=== PATIENT | female | born 1940 | race Caucasian/White ===

== ENCOUNTER 2024-05-07 17:11 | Emergency (ER) | payer MEDICARE, OTHER, SELFPAY ==
--- NOTE | ~2024-05-07 | XR_ITS ---
EXAMINATION: XR humerus RT DATE: 05/07/2024 18:48 INDICATION: Right arm injury post fall TECHNIQUE: Internal and externally rotated views of the right humerus were obtained. COMPARISON: None. FINDINGS: Suture anchors at the right humeral head consistent with prior rotator cuff repair. Likely recurrent tear with cephalad subluxation of the humeral head with respect to the glenoid and narrowing of the s ubacromial space to essentially [id number] with remodeling of the undersurface of the acromion. The re is also been prior distal right clavicle resection. No fracture. 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 Dense material and suggestion of some soft tissue gas at the distal right upper ar m suggesting a skin laceration. No radiopaque foreign bodies. IMPRESSION: 1. No acute osseous abnormality. 2. Right rotator cuff arthropathy consistent with likely chronic recurrent rotator cuff tear post anila or repair. Reviewed, dictated and finalized at location A. IMPRESSION: 1. No acute osseous abnormality. 2. Right rotator cuff arthropathy consistent with likely chronic recurrent rota tor cuff tear post prior repair.
--- NOTE | 2024-05-07 17:26 | ED.GENADULT ---
HPI - General Adult General Chief complaint: Extremity Injury, Upper Stated complaint: Fell and has skin tears Time Seen by Provider: 05/07/24 17:26 Source: patient Mode of arrival: ambulatory Limitations: no limitations History of Present Illness HPI narrative: 83 y/o female presented for c/o large skin tears to right upper arm after fall at home today at 1300. States she tripped and fell backwards on her stairs, and struck the right arm on the stopper of the screen door. States she continued to do laundry, showered, and covered the site with paper towels. Denies pain to the wounds, denies decreased ROM to right arm, denies numbness, tingling or weakness of the extremity. Denies dizziness prior to the fall, denies LOC. Pt is accompanied by son. Unsure of last tetanus. Related Data Home Medications Medication Instructions Recorded Confirmed calcium carbonate 600 mg PO DAILY 05/07/24 05/07/24 cholecalciferol (vitamin D3) 50 50 mcg PO DAILY 05/07/24 05/07/24 mcg (2,000 unit) tablet (Vitamin D3) naproxen sodium 220 mg tablet 220 mg PO DAILY PRN ARTHRITIC PAIN 05/07/24 05/07/24 (Aleve) omega 1-erd-mem-fish oil 1,000 mg 1 cap PO DAILY 05/07/24 05/07/24 (120 mg-180 mg) capsule (Fish Oil) Allergies Allergy/AdvReac Type Severity Reaction Status Date / Time No Known Allergies Verified 05/07/24 17:54 Review of Systems Review of Systems: CONSTITUTIONAL: Denies body aches, fever, chills, or sweats. EYES: Denies visual changes, redness, or discharge. ENT: Denies rhinorrhea, congestion CARDIOVASCULAR: Denies chest pain, palpitations, or edema. RESPIRATORY: Denies cough or dyspnea. GASTROINTESTINAL: Denies abdominal pain, nausea, vomiting, or diarrhea. SKIN: MUSCULOSKELETAL: Denies back pain, joint pain, or myalgia. NEUROLOGIC: Denies headache, numbness, tingling, or weakness. PMFSH Comments At time of signature, I have reviewed and agree with nursing past medical, surgical, social and family history unless otherwise noted. Please see nursing chart for further information. There is no relevant family history pertinent to the presenting complaint Exam Narrative: GENERAL: Well-appearing HEAD: Normocephalic, atraumatic. EYES: conjunctivae clear, and EOMI. ENT: Mucous membranes moist. Oropharynx without edema, erythema or lesions. NECK: Supple. No lymphadenopathy CHEST: Clear to auscultation. HEART: Regular rhythm, bradycardic SKIN: Warm, dry. RUE distal to elbow skin avulsion 9cm. Mid/lateral upper arm with [id number] U-shaped deep laceration and avulsion involving muscle layer. Large amount of active bleeding. Full ROM to shoulder and elbow. CMS intact to hand. Radial pulse palpable. NEURO: Alert and oriented x3. Course Course Emergency Course: Patient is aware of diagnosis, understands and agrees to treatment plan. Anticipatory guidance given. Patient agrees to follow-up as directed and is aware of reasons to seek care at the emergency department. Portions of this record may have been created with voice recognition software Level of Care: Express Care Visit Vital Signs Vital signs: Vital Signs Temperature 97.0 F L 05/07/24 17:30 Pulse Rate 43 L 05/07/24 17:30 Respiratory Rate 20 05/07/24 17:30 Blood Pressure 145/58 H 05/07/24 17:30 Pulse Oximetry 100 05/07/24 17:30 Oxygen Delivery Room Air 05/07/24 17:30 Temperature 97.0 F L 05/07/24 17:56 Pulse Rate 43 L 05/07/24 17:56 Respiratory Rate 20 05/07/24 17:56 Blood Pressure 145/58 H 05/07/24 17:56 Pulse Oximetry 100 05/07/24 17:56 Oxygen Delivery Room Air 05/07/24 17:56 Reviewed Transfer Transfered to: [facility] Transportation: Other ( Private vehicle) Transfer rationale: Pt is agreeable to transfer. Requests transfer to [facility] via private vehicle. Risks of transportation reviewed with pt including injury, worsening of condition and . v/u. Son will b
[2024-05-07 17:30] VITALS: BP 145/58; PULSE 43; RESP 20; TEMP 36.1; O2SAT 100
[2024-05-07] MEDS: TETANUS,DIPHTHERIA,AC PERTUSSIS ADULT (0.5 ML) BOOSTRIX IM (17:47)
[2024-05-07 17:56] VITALS: BP 145/58; PULSE 43; RESP 20; TEMP 36.1; O2SAT 100
--- NOTE | 2024-05-07 18:29 | ECG_ITS ---
Test Date: 2024-05-07 18:39:13 Measurements Intervals [place] Rate: 78 P: 55 ND: 144 QRS: -17 QRSD: 106 T: 19 QT: 384 QTc: 438 Interpretive Statements SINUS RHYTHM WITH FREQUENT VENTRICULAR PREMATURE COMPLEXES IN A BIGEMINAL PATTERN POSSIBLE LEFT ATRIAL ENLARGEMENT [-0.1mV P WAVE IN V1/V2] BORDERLINE LEFTWARD AXIS ABNORMAL RHYTHM ECG No previous ECG available for comparison Electronically Signed On 05-08-2024 11:16:41 CDT by Rob Linares M.D.
== END 2024-05-07 19:40 | disposition short-term general hospital (02) ==
PROVIDERS: Emergency Provider Nurse Practitioner Family; PCP Family Medicine
DX: R00.1 Bradycardia, unspecified (principal); S41.111A Laceration without foreign body of right upper arm, initial encounter; W10.9XXA Fall (on) (from) unspecified stairs and steps, initial encounter; Z23 Encounter for immunization; M19.90 Unspecified osteoarthritis, unspecified site; Z96.651 Presence of right artificial knee joint
CPT/HCPCS: 73060; 90471; 90715; 93005; 99203; G0463

== ENCOUNTER 2025-04-07 15:34 | Emergency (ER) | payer MEDICARE, OTHER, SELFPAY ==
--- OUTSIDE RECORDS SUMMARY | 2025-04-07 15:36 | XMS_ITS | Clinical Summary ---
Author Organization [facility] Address [address] [address] Phone Care Team Providers Care Striker Out Name Role Phone Mohan Perdue MD Unavailable [phone] Allergies Active Allergy Reactions Criticality Noted Date Comments Adhesive Tape Unknown Medications Naproxen Sodium (ALEVE PO) Take 220 mg by mouth 2 times daily as needed. Active Cholecalciferol (VITAMIN D) 2000 UNIT Tablet Take 1 Tab by mouth daily. Active other 3,000 mg by Other route daily. cbd oil Active ascorbic acid (ASCORBIC ACID) 500 MG Tablet Take 500 mg by mouth daily. Active Calcium Carbonate-Vitami n D (CALTRATE 600+D PO) Take by mouth. Active Active Problems Problem Noted Date Diagnosed Date Arthritis 05/25/2016 Mixed hyperlipidemia 02/16/2016 Low bone mass 02/16/2016 GERD (gastroesophageal reflux disease) 6 Corns Resolved Problems Problem Noted Date Diagnosed Date Resolved Date Dyspnea on exertion 06/05/2017 06/25/20 19 Joint instability 06/05/2017 Overview (06/29/2015): Of ankle/foot Hammer toe 06/05/2017 Pain in limb 06/05/2017 Deformity 06/05/2017 Overview (06/29/2015): Acquired deformity of ankle Immunizations Immunization Administration Dates Next Due Covid-19, Mrna, Lnp-s, PF, 1 00 mcg/0.5 mL Dose (Moderna) 03/13/2022,08/14/2021,12/06/2020,2020 Influenza Vaccine 08/03/2015 Influenza Vaccine greater than 3 yrs 07/08/2018, 07/07/2014 Influenza Vaccine, Quadrivalent, PF 06/27/2020,0 06/25/2019 Influenza, Seasonal, Injecta ble, Undefined 07/07/2013,07/18/2011 Influenza, high-dose, trivalent, PF 07/10/2017,0 07/04/2016 PUR PCV-13 02/20/2016 PUR TDAP 7+ YRS IM 05/25/2016 Pneumococcal Vaccine - 13 Valent 06/27/2020 Pneumococcal Vaccine Adult - 23 Valent 06/07/2017 Zoster Vaccine Recombinant 03/20/2023 Zoster Vaccine, live 10/07/2012 Family History Medical History Relation Name Comments Cancer Father Colon Cancer Other 1 Cousin Breast Cancer Other 2 Cousin Breast Relation Name Status Comments Father Mother Other 1 Cousin Other 2 Cousin Social History Tobacco Use Types Packs/Day Years Used Date Smoking Tobacco: Former Cigarettes 1 1 Smokeless Tobacco: Never Tobacco Cessation:Counseling Given: No Alcohol Use Standard Drinks/Week Comments Yes 0 (1 standard drink = 0.6 oz pur e alcohol) PHQ-2 Answer Date Recorded Total Score - Questions 1-9 0 03/07 Comments No Sex and Gender Information Value Date Recorded Sex Assigned at Not on file Legal Sex Female 9:31 PM CDT Gender Identity Not on file Sexual Orientation Not on file Last Filed Vital Signs Vital Sign Reading Time Taken Comments Blood Pressure 110/80 03/23/2021 8:56 AM CDT Pulse 68 03/23/2021 8:56 AM CDT Temperature 36.5 C (97.7 F) 03/23/2021 8:56 AM CDT Respiratory Rate 18 03/23/2021 8:56 AM CDT Oxygen Saturation 95% 03/23/2021 8:56 AM CDT Inhaled Oxygen Concentration - - Weight 68.5 kg (151 lb) 03/23/2021 8:56 AM CDT Height 157.5 cm (5' 2) 03/23/2021 8:56 AM CDT Body Mass Index 27.62 03/23/2021 8:56 AM CDT Plan of Treatment Health Maintenance Due Date Last Done Comments Hepatitis C Virus (HCV) Screening 1940 Respiratory Syncytial Virus (RSV) Immunization (Adult) (1 - 1-dose 75+ series) 2015 Zoster Immunization (3 of 3) 05/15/2023 03/20/2023, 10/07/2012 SARS-COV-2 Immunization ( season) 2024 03/13/2022, 08/14/2021, 12/06/2020, Additional history exists Influenza Immunization (#1) 06/07/202506/08, 06/25/2019, 07/08/2018, Additional history exists Td Immunization Every 10 Years (Adults With 1 Tdap) 05/25/2026 05/25/2016 DEXA Bone Density Discontinued 08/18/2015, 08/18/2015 Pneumococcal Immunization (50+ years) Completed 06/27/2020, 06/07/2017, 02/20/2016 Pneumococcal Immunization Combined Discontinued 06/27/2020, 06/07/2017, 02/20/2016 Hepatitis B Immunization Aged Out No longer eligible based on patient's age to complete this topic Human Papillomavirus (HPV) Immunization Aged Out No longer eligible based on patient's age to complete this topic Meningococcal Immunization (ACWY) Aged Out No longer eligible based on patient's age to complete this topic Rotavirus Immunization Aged Out No lo nger eligible based on patient's age to complete this topic Procedures Procedure Name Priority Date/Time Associated Diagnosis Comments SHY BONE DENSITOMETRY AXIAL SKELETON Routine 08/18/2015 from Last 3 Months or Most Recently Relevant to Health Maintenance Results * SHY BONE DENSITOMETRY AXIAL SKELETON (08/18/2015) Anatomical Region Laterality Modality BODY N/A Other Sera Diego [employer] 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
--- OUTSIDE RECORDS SUMMARY | 2025-04-07 15:36 | XMS_ITS | Referral Summary ---
Author Organization [facility] Address [address] [place] [address] Care Team Providers Care Wrapper Stemmer Operator Name Role Phone Sanchez Landa MD Primary Care Provider [phone] Allergies Active Allergy Reactions Criticality Noted Date Comments Adhesive Rash Medium 07/05/2021 Medications cholecalciferol (VITAMIN D-3) 2000 unit tablet Take 1 tablet (2,000 Units total) by mouth daily Active calcium carbonate-vitam in D3 (CALTRATE 600 + D) 1500 mg (600 mg elemental) -400 units per tablet Take 1 tablet by mouth daily Active naproxen sodium 220 mg capsule Take by mouth Active moxifloxacin (VIGAMOX) 0.5 % ophthalmic solution 1 drop 2 (two) times a day 07/27/2023 Active flaxseed oiL oil 1,200 mg Active omega 0-bln-vjx-fish oil 1,000 (120-180) mg capsule 1 capsule (1,000 mg total) 05/07/2024 Active Active Problems Problem Noted Date Diagnosed Date BMI 23.0-23.9, adult 08/11/2024 Assessment & Plan (08/11/2024 9:42 AM FENCE SUPERVISOR): Stable; no changes in weight or appetite. Medicare annual wellness visit, subsequent 09/23 Assessment & Plan (08/11/2024 9:41 AM FENCE SUPERVISOR): Preventative exam; no concerns today. Reviewed labs. Declines repeat bone density scan and colonoscopy. Assessment & Plan (08/07/2023 9:18 AM CDT): Patient presents for her in well Medicare visit. Voices no concerns or complaints. States she is doing well overall. She is suffering from dry eye syndrome that is being managed by her eye doctor. 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 Went over recent lab work-no concerns noted Return in 1 year for annual Medicare visit Assessment & Plan (09/23/2021 4:08 PM FENCE SUPERVISOR): We discussed a comprehensive list of medical conditions and proposed recommendations for each. We discussed the importance of increased exercise, fall prevention, proper nutrition, and suggested joining [facility] to accomplish most of these goals. Patient was given an age appropriate Medicare preventive services checklist. Please see the EMR regarding details of their health risk assessment and preventive services checklist. Will see her back in 3 months with lab sooner if needed. At low risk for fall 09/23/2021 Assessment & Plan (09/23/2021 4:08 PM FENCE SUPERVISOR): Timed get up and go test normal. Prehypertension 08/02/2021 Overview (11/02/2021): Element of white coat hypertension and deconditioning. Assessment & Plan (11/02/2021 10:07 AM FENCE SUPERVISOR): I recommended that she continue monitor blood pressure at home call back if they elevate. Bring in numbers at each visit. Increase exercise for some slight deconditioning. Assessment & Plan (09/23/2021 4:08 PM FENCE SUPERVISOR): Avoid salt try to increase exercise and check blood pressures at home. Record and bring to next visit. Decide on need for medication next visit. GERD (gastroesophageal reflux disease) 6 Assessment & Plan (11/02/2021 10:07 AM FENCE SUPERVISOR): No complaints today. Mixed hyperlipidemia 02/16/2016 Assessment & Plan (08/11/2024 9:41 AM FENCE SUPERVISOR): Reviewed labs with patient; LDL slightly increased check. Patient states she has not been doing diet as well in the past few months. Assessment & Plan (08/07/2023 8:23 AM CDT): LDL, HDL and triglycerides at goal Total cholesterol mildly elevated at 205 Assessment & Plan (11/02/2021 10:07 AM FENCE SUPERVISOR): With her age and elevated HDL recommend increasing exercise and focusing on diet as well. Assessment & Plan (09/23/2021 4:08 PM FENCE SUPERVISOR): Diet exercise and check lipids and LFTs before next visit and decide on need for statin therapy at that time. Osteopenia 07/21/2013 Overview (08/02/2021): Assessment & Plan (08/11/2024 9:41 AM FENCE SUPERVISOR): Continues calcium and vitamin-D. Declines repeat bone density scan Assessment & Plan (08/07/2023 9:19 AM CDT): Continue Caltrate and vitamin-D as prescribed Assessment & Plan (11/02/2021 10:07 AM FENCE SUPERVISOR): Calcium, vitamin-D, weight-bearing exercise repeat bone density scan August 2023. Assessment & Plan (09/23/2021 4:08 PM FENCE SUPERVISOR): Calcium, vitamin-D, weight-bearing exercise and check bone density scan before next visit. Immunizations Immunization Administration Dates Next Due COVID-19 mRNA (Sociall) 0.3 m L (30 mcg) vaccine (12 years and up) 07/01/2024 Influenza, Quadrivalent, Hig h Dose, Preservative Free, Intrr 07/24/2023,07/06/2022,06/23/2021 Influenza, Quadrivalent, Spl it, Preservative Free, Intramuscular 06/27/2020,06/25/2019 Influenza, Trivalent, High D ose, Split, Preservative Free, Intramuscular 06/03/2024,07/10/2017,07/04/2016 Influenza, Trivalent, IM (MDV) 8,07/07/2014,07/07/2013,07/18 Influenza, Trivalent, Preser vative Free, Intramuscular 08/03/2015 Influenza, Unspecified 07/24/2023,07/07/2022 Moderna SARS-CoV-2 Monovalen t Vaccination (12+ YRS) 07/24/2023,03/13/2022 Pneumococcal Conjugate PCV 13 06/27/2020, 016 Pneumococcal Conjugate Pcv20 07/06/2022 Pneumococcal Polysaccharide PPV23 06/07/2017 RSV Vaccine, Pref, Recombina nt, Subunit, Adjuvanted, PF, IM (Arexvy) 07/24/2023 Tdap 05/07/2024,05/25/2016 ZOSTER LIVE 10/07/2012 ZOSTER Recombinant 03/20/2023,12/26/2022 Social History Tobacco Use Types Packs/Day Years Used Date Smoking Tobacco: Never Smokeless Tobacco: Never Tobacco Cessation:Counseling Given: Not Answered Alcohol Use Standard Drinks/Week Comments No 0 (1 standard drink = 0.6 oz pur e alcohol) PHQ-2 Answer Date Recorded PHQ-2 Total Score (If total score is 3 or more points, staff should administer the PHQ-9) 0 08/11/2024 Personal Safety Answer Date Recorded Have you ever been in or are you currently in a harmful physical or emotional relationship or is someone making you feel afraid or unsafe? Denies 05/07/2024 Comments Unknown Sex and Gender Information Value Date Recorded Sex Assigned at Not on file Legal Sex Female 12:40 AM FENCE SUPERVISOR Gender Identity Not on file Sexual Orientation Not on file Last Filed Vital Signs Vital Sign Reading Time Taken Comments Blood Pressure 112/78 08/11/2024 9:04 AM FENCE SUPERVISOR Pulse 51 08/11/2024 9:04 AM FENCE SUPERVISOR Temperature 36.6 C (97.9 F) 08/11/2024 9:04 AM FENCE SUPERVISOR Respiratory Rate 17 08/11/2024 9:04 AM FENCE SUPERVISOR Oxygen Saturation 98% 08/11/2024 9:04 AM FENCE SUPERVISOR Inhaled Oxygen Concentration - - Weight 61.2 kg (135 lb) 08/11/2024 9:04 AM FENCE SUPERVISOR Height 162.6 cm (5' 4.02) 08/11/2024 9:04 AM CS T Body Mass Index 23.16 08/11/2024 9:04 AM FENCE SUPERVISOR Plan of Treatment Not on file Procedures Procedure Name Priority Date/Time Associated Diagnosis Comments DEXA AXIAL SKELETON BONE DENSITY 1 OR MORE SITES Schedule Routine, Read Routine (OP Routine) 08/14/2021 9:10 AM FENCE SUPERVISOR Osteopenia, unspecified location Post-menopause from Last 3 Months or Most Recently Relevant to Health Maintenance Results * Dexa Axial Skeleton Bone Density 1 or 2 Site (08/14/2021 9:10 AM FENCE SUPERVISOR) Anatomical Region Laterality Modality Body N/A Other 08/14/2021 2:22 PM FENCE SUPERVISOR Narrative 08/14/2021 2:23 PM FENCE SUPERVISOR EXAM DESCRIPTION: DEXA AXIAL SKELETON BONE DENSITY 1 OR MORE SITES REASON FOR STUDY: 80 y/o year old F with given history of screening. Director Financial Systems/Model: [employer] (S/N [id number]) CLINICAL INFORMATION: Current height: 62 inches Maximum height: 63 inches Weight: 145 pounds Risk factors: None COMPARISON: 08/18/2015 FINDINGS: AP LUMBAR SPINE L1-L4: Total BMD is 1.036 g/cm2 T-score is -0.1 Most recent prior BMD was 1.054 g/cm2 There has been a 1.7% decrease in BMD which is not statistically significant. Measured BMD is thought to be spuriously elevated due to facet arthropathy.. Levoconvex curvature. LEFT HIP: Current Total BMD is 0.726 g/cm2 T-score is -1.8 Most recent prior Total BMD was 0.698 g/cm2 There has been a 4% increase in BMD which is statistically significant. Current femoral neck BMD is 0.679 g/cm2 T-score is -1.5 IMPRESSION: Low bone mass. Fracture risk assessment (FRAX): 10 year risk for a major osteoporotic fracture is 14 % 10 year risk for a hip fracture is 3.4 % The FRAX tool has not been validated in patients currently or previously treated with pharmacotherapy for osteoporosis. In such patients, clinical judgement must be exercised in interpreting FRAX scores as the fracture risk may be overestimated. REFERENCE: Bone mineral density: Normal (T-score above or = -1.0) Low bone mass (T-score between -1.0 and -2.5) replaces the previously used term osteopenia Osteoporosis (T-score = or below -2.5) Medical evaluation for secondary causes of low bone mineral density may be appropriate. FRAX is a World Health Organization validated fracture risk assessment tool that calculates a person's 10 year probability of a major osteoporosis related fracture and hip fracture. According to the National Osteoporosis Foundation guidelines, postmenopausal women and men age 50 or older with low bone mass and a 10 year probability of a major osteoporosis related fracture = or greater than 20% or a 10 year probability of a hip fracture = or greater than 3% should be considered for treatment. For further information, including treatment recommendations, please refer to the 2013 ISCD Official Positions (http://www.iscd.org) and the NOF's Clinician's Guide to Prevention and Treatment of Osteoporosis (http://www.nof.org/professionals/clinical-guidelines) THIS IS AN ELECTRONICALLY VERIFIED FINAL REPORT 08/14/2021 2:23 PM - Electronically signed by Jeniffer Ochoa M.D. TB: TB Report ID: [id number] Reading Location: [facility] Procedure Note Jeniffer Ochoa MD - 08/14/2021 EXAM DESCRIPTION: DEXA AXIAL SKELETON BONE DENSITY 1 OR MORE SITES REASON FOR STUDY: 80 y/o year old F with given history of screening. Director Financial Systems/Model: [employer] (S/N [id number]) CLINICAL INFORMATION: Current height: 62 inches Maximum height: 63 inches Weight: 145 pounds Risk factors: None COMPARISON: 08/18/2015 FINDINGS: AP LUMBAR SPINE L1-L4: Total BMD is 1.036 g/cm2 T-score is -0.1 Most recent prior BMD was 1.054 g/cm2 There has been a 1.7% decrease in BMD which is not statisticallysignificant. Measured BMD is thought to be spuriously elevated due to facetarthropathy.. Levoconvex curvature. LEFT HIP: Current Total BMD is 0.726 g/cm2 T-score is -1.8 Most recent prior Total BMD was 0.698 g/cm2 There has been a 4% increase in BMD which is statistically significant. Current femoral neck BMD is 0.679 g/cm2 T-score is -1.5 IMPRESSION: Low bone mass. Fracture risk assessment (FRAX): 10 year risk for a major osteoporotic fracture is 14 % 10 year risk for a hip fracture is 3.4 % The FRAX tool has not been validated in patients currently or previously treated with pharmacotherapy for osteoporosis. In such patients, clinical judgement must be exercised in interpreting FRAX scores as the fracturerisk may be overestimated. REFERENCE: Bone mineral density: Normal (T-score above or = -1.0) Low bone mass (T-score between -1.0 and -2.5) replaces thepreviously used term osteopenia Osteoporosis (T-score = or below -2.5) Medical evaluation for secondary causes of low bone mineral density may be appropriate. FRAX is a World Health Organization validated fracture risk assessmenttool that calculates a person's 10 year probability of a major osteoporosisrelated fracture and hip fracture. According to the National OsteoporosisFoundation guidelines, postmenopausal women and men age 50 or older with low bonemass and a 10 year probability of a major osteoporosis related fracture = or greater than 20% or a 10 year probability of a hip fracture = or greaterthan 3% should be considered for treatment. For further information, including treatment recommendations, please referto the 2013 ISCD Official Positions (http://www.iscd.org) and the NOF's Clinician's Guide to Prevention and Treatment of Osteoporosis (http://www.nof.org/professionals/clinical-guidelines) THIS IS AN ELECTRONICALLY VERIFIED FINAL REPORT 08/14/2021 2:23 PM - Electronically signed by Jeniffer Ochoa M.D. TB: TB Report ID: [id number] Reading Location: [facility] Mukund Jenkins MD IMG DXA PROCEDURES Final Res ult from Last 3 Months or Most Recently Relevant to Health Maintenance Insurance MEDICARE [facility] [place] [id number] MEDICARE PHYSICIANS [facility] [place] Care Teams Wrapper Stemmer Operator Relationship Specialty Start Date End Date Sanchez Landa MD [address] [place] [address] PCP - General Family Medicine 07/17/22
--- OUTSIDE RECORDS SUMMARY | 2025-04-07 15:36 | XMS_ITS | Clinical Summary ---
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 Medicare annual wellness visit, subsequent 09/23 Assessment & Plan (08/11/2024 9:41 AM PROFESSOR OF MUSIC): Preventative exam; no concerns today. Reviewed labs. 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 Went over recent lab work-no concerns noted Return in 1 year for annual Medicare visit Assessment & Plan (09/23/2021 4:08 PM PROFESSOR OF MUSIC): We discussed a comprehensive list of medical conditions and proposed recommendations for each. We discussed the importance of increased exercise, fall prevention, proper nutrition, and suggested joining [facility] to accomplish most of these goals. Patient was given an age appropriate Medicare preventive services checklist. Please see the EMR regarding details of their health risk assessment and preventive services checklist. Will see her back in 3 months with lab sooner if needed. At low risk for fall 09/23/2021 Assessment & Plan (09/23/2021 4:08 PM PROFESSOR OF MUSIC): Timed get up and go test normal. Prehypertension 08/02/2021 Overview (11/02/2021): Element of white coat hypertension and deconditioning. Assessment & Plan (11/02/2021 10:07 AM PROFESSOR OF MUSIC): I recommended that she continue monitor blood pressure at home call back if they elevate. Bring in numbers at each visit. Increase exercise for some slight deconditioning. Assessment & Plan (09/23/2021 4:08 PM PROFESSOR OF MUSIC): Avoid salt try to increase exercise and check blood pressures at home. Record and bring to next visit. Decide on need for medication next visit. GERD (gastroesophageal reflux disease) 6 Assessment & Plan (11/02/2021 10:07 AM PROFESSOR OF MUSIC): No complaints today. Mixed hyperlipidemia 02/16/2016 Assessment & Plan (08/11/2024 9:41 AM PROFESSOR OF MUSIC): Reviewed labs with patient; LDL slightly increased check. Patient states she has not been doing diet as well in the past few months. Assessment & Plan (08/07/2023 8:23 AM CDT): LDL, HDL and triglycerides at goal Total cholesterol mildly elevated at 205 Assessment & Plan (11/02/2021 10:07 AM PROFESSOR OF MUSIC): With her age and elevated HDL recommend increasing exercise and focusing on diet as well. Assessment & Plan (09/23/2021 4:08 PM PROFESSOR OF MUSIC): Diet exercise and check lipids and LFTs before next visit and decide on need for statin therapy at that time. Osteopenia 07/21/2013 Overview (08/02/2021): Assessment & Plan (08/11/2024 9:41 AM PROFESSOR OF MUSIC): Continues calcium and vitamin-D. Declines repeat bone density scan Assessment & Plan (08/07/2023 9:19 AM CDT): Continue Caltrate and vitamin-D as prescribed Assessment & Plan (11/02/2021 10:07 AM PROFESSOR OF MUSIC): Calcium, vitamin-D, weight-bearing exercise repeat bone density scan August 2023. Assessment & Plan (09/23/2021 4:08 PM PROFESSOR OF MUSIC): Calcium, vitamin-D, weight-bearing exercise and check bone density scan before next visit. Immunizations Immunization Administration Dates Next Due COVID-19 mRNA ([employer]) 0.3 m L (30 mcg) vaccine (12 [...] 05/07/2024,05/25/2016 ZOSTER LIVE 10/07/2012 ZOSTER Recombinant 03/20/2023,12/26/2022 Surgical History Surgery Date Site/Laterality Comments OTHER SURGICAL HISTORY 10/07/1964 - 10/06/1965 : OTHER SURGICAL HISTORY 10/07/1967 - 10/06/1968 : TOTAL KNEE ARTHROPLASTY 02/20/2011 Right Total Knee Replacement FOOT SURGERY Foot surgery CATARACT EXTRACTION Cataract APPENDECTOMY Appendectomy BREAST BIOPSY Left ROTATOR CUFF REPAIR 12/21/2003 Right CARPAL TUNNEL RELEASE 10/07/1983 - 10/06/1984 Medical History Medical History Date Comments Hx Other Medical 1964 ; Outc ome: 40 week 8 lb(s) 9 oz Male Hx Other Medical 1967 ; Outc ome: 40 week 8 lb(s) 12 oz Male Encounter for other orthopedic aftercare Orthopedic aftercare - (Added by TW Conv) Aftercare following joint re placement surgery Aftercare following joint re placement - (Added by TW Conv) Family History Medical History Relation Name Comments Colon cancer Father Cancer, colon; Cause of : Cancer, colon Breast cancer Paternal cousin 1 Breast cancer Paternal cousin 2 Relation Name Status Comments Father Mother Paternal cousin 1 Paternal cousin 2 Social History Tobacco Use Types Packs/Day Years [...] on file Legal Sex Female 12:40 AM PROFESSOR OF MUSIC Gender Identity Not on file Sexual Orientation Not on file Obstetrics History Last Filed Vital Signs Vital Sign Reading Time Taken Comments Blood Pressure 112/78 08/11/2024 9:04 AM PROFESSOR OF MUSIC Pulse 51 08/11/2024 9:04 AM PROFESSOR OF MUSIC Temperature 36.6 C (97.9 F) 08/11/2024 9:04 AM PROFESSOR OF MUSIC Respiratory Rate 17 08/11/2024 9:04 AM PROFESSOR OF MUSIC Oxygen Saturation 98% 08/11/2024 9:04 AM PROFESSOR OF MUSIC Inhaled Oxygen Concentration - - Weight 61.2 kg (135 lb) 08/11/2024 9:04 AM PROFESSOR OF MUSIC Height 162.6 cm (5' 4.02) 08/11/2024 9:04 AM CS T Body Mass Index 23.16 08/11/2024 9:04 AM PROFESSOR OF MUSIC Plan of Treatment Health Maintenance Due Date Last Done Comments Colon Cancer Screening-Colonoscopy 1940 Hepatitis B Screening 1958 Osteoporosis Screening-Bone Density Scan 08/14/2023 08/14/2021, 08/18/2015, 08/18/2015, Additional history exists Covid-19 Vaccine (2023-11 5 season) 2024 07/01/2024, 07/24/2023, 07/24/2023, Additional history exists Depression Screening 08/11/2025 08/11/2024, 08/07/2023, 07/17/2022, Additional history exists Fall Risk Assessment 08/11/2025 08/11/2024, 08/07/2023, 07/17/2022, Additional history exists Well Visit 65+ 08/11/2025 08/11/2024, 10/2022, 08/02/2021 DTaP/Tdap/Td Vaccine (3 - Td or Tdap) 05/07/2034 05/07/2024, 05/25/2016 Pneumococcal vaccine 65+ Completed 022, 06/27/2020, 06/07/2017, Additional history exists Zoster Vaccine Completed 03/20/2023, 12/06, 10/07/2012 Influenza Vaccine Completed 06/03/2024, , 07/24/2023, Additional history exists Procedures Procedure Name Priority Date/Time Associated Diagnosis Comments DEXA AXIAL SKELETON BONE DENSITY 1 OR MORE SITES Schedule Routine, Read Routine (OP Routine) 08/14/2021 9:10 AM PROFESSOR OF MUSIC Osteopenia, unspecified location Post-menopause from Last 3 Months or Most Recently Relevant to Health Maintenance Results * Dexa Axial Skeleton Bone Density 1 or 2 Site (08/14/2021 9:10 AM PROFESSOR OF MUSIC) Anatomical Region Laterality Modality Body N/A Other 08/14/2021 2:22 PM PROFESSOR OF MUSIC Narrative 08/14/2021 2:23 PM PROFESSOR OF MUSIC EXAM DESCRIPTION: DEXA AXIAL SKELETON BONE DENSITY 1 OR MORE SITES REASON FOR STUDY: 80 y/o year old F with given history of screening. 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 TB: TB Report ID: [id number] Reading Location: [facility] Procedure Note Jeniffer Ochoa MD - 08/14/2021 EXAM DESCRIPTION: DEXA AXIAL SKELETON BONE DENSITY 1 OR MORE SITES REASON FOR STUDY: 80 y/o year old F with given history of screening. 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 TB: TB Report ID: [id number] Reading Location: [facility] Mukund Jenkins MD IMG DXA PROCEDURES Final Res ult from Last 3 Months or Most Recently Relevant to Health Maintenance Insurance MEDICARE [facility] [place] MEDICARE COMMERCIAL GENERIC MEDICARE [facility] [facility] [place] Care Teams Meat Dresser Relationship Specialty Start Date End Date [place] [address] PCP - General Family Medicine 07/17/22
[2025-04-07 15:38] VITALS: BP 240/62; PULSE 41; RESP 18; TEMP 36.8; O2SAT 100
--- NOTE | 2025-04-07 16:18 | ED.FALL ---
HPI - Fall General Chief Complaint: Fall Stated Complaint: fall/arm lacs and sore Time Seen by Provider: 04/07/25 16:03 Source: patient and RN notes reviewed Mode of arrival: ambulatory Limitations: no limitations History of Present Illness HPI Narrative: Patient presents today with her son. Just prior to arrival, patient fell in to an open clothes dryer door when moving clothes, injuring her right forearm, right elbow, and left upper arm. Denies dizziness or syncope or trip/fall. She does have history of fall. Denies any head injury or loss of consciousness. She currently denies any bony pain, and is only concerned about some skin tears. She fell 1 year ago and was seen at [facility] for skin tears similarly. Related Data Home Medications ?Medication ?Instructions ?Recorded ?Confirmed ?Last Taken ?Type calcium carbonate 600 mg PO DAILY 05/07/24 05/07/24 Unknown History cholecalciferol (vitamin D3) 50 50 mcg PO DAILY 05/07/24 05/07/24 Unknown History mcg (2,000 unit) tablet (Vitamin D3) naproxen sodium 220 mg tablet 220 mg PO DAILY PRN ARTHRITIC PAIN 05/07/24 05/07/24 Unknown History (Aleve) omega 1-ysq-xef-fish oil 1,000 mg 1 cap PO DAILY 05/07/24 05/07/24 Unknown History (120 mg-180 mg) capsule (Fish Oil) Allergies Allergy/AdvReac Type Severity Reaction Status Date / Time No Known Allergies Verified 05/07/24 17:54 PMFSH Comments At time of signature, I have reviewed and agree with nursing past medical, surgical, social and family history unless otherwise noted. Please see nursing chart for further information. There is no relevant family history pertinent to the presenting complaint Exam Narrative: GENERAL: Well-appearing, well-nourished, and in no acute distress. HEAD: Normocephalic, atraumatic. EYES: EOMI. No redness or drainage. Conjunctivae normal. ENT: Mucous membranes pink and moist. NECK: Normal AROM. CHEST: No respiratory distress. EXTREMITIES: Right arm: 8 cm L-shaped partial-thickness skin tear to the dorsum of the wrist. 2 cm L-shaped superficial skin tear to the elbow at the posterior humerus with some mild surrounding ecchymosis, no edema. Patient has no bony tenderness to the right arm with full range of motion. Distal sensation intact. Capillary refill normal. Radial pulse normal. Left arm: Approximately 2 x 0.5 cm superficial skin avulsion to the olecranon process. No bony tenderness about the arm. Distal sensation intact. Capillary refill normal. Radial pulse normal. Full range of motion of the arm with the exception of the shoulder to has limited range of motion, but baseline for patient. SKIN: Warm, dry, no rash. Capillary refill normal. Normal skin turgor. NEURO: No focal deficits. Alert and oriented x3. Gait steady. PSYCH: Normal affect. No signs of depression or anxiety. Course Course Level of Care: Express Care Visit Vital Signs Vital signs: Vital Signs Temperature 98.3 F 04/07/25 15:38 Pulse Rate 41 L 04/07/25 15:38 Respiratory Rate 18 04/07/25 15:38 Blood Pressure 240/62 H 04/07/25 15:38 Pulse Oximetry 100 04/07/25 15:38 Oxygen Delivery Room Air 04/07/25 15:38 Temperature 98.3 F 04/07/25 15:38 Pulse Rate 62 04/07/25 16:37 Respiratory Rate 20 04/07/25 16:37 Blood Pressure 180/70 H 04/07/25 16:37 Pulse Oximetry 100 04/07/25 15:38 Oxygen Delivery Room Air 04/07/25 15:38 Reviewed Procedures Laceration Laceration 1: Date: 04/07/25 Time: 17:51 Site: upper extremity (Right arm) Side (If applicable): right Size (cm): 8 Description: other (Skin tear) Depth: simple, single layer Local Anesthetic: none ====== Skin Level ====== Skin layer closed with: steri strips ====== Subcutaneous Layer ====== ====== Muscle Layer ====== ====== Tendon Layer ====== Dressing: Right wrist and upper arm skin tears closed with Steri-Strips and benzoin with almost close approximation. Wrist dressed with nonadherent dressing and Coban. Upper arm dressed with Kerlix and Coban. MDM - Fall MDM Narrative Medical decision making narrative: Pleasant 84yo female presents with son with complaints of skin tears to the right wrist, right upper arm, and left elbow that were sustained when she fell in to an open dryer door this afternoon without any additional injuries. She had very similar injuries approximately 1 year ago after a fall. Wounds were cleansed and closed with Steri-Strips. Skin avulsion to the left arm was dressed with Vaseline gauze and Kerlix and Coban. She had no bony tenderness and no head injury, so no x-rays or transfer for further evaluation was considered. She is not on any blood thinners or Plavix. When patient arrived, anxious, her blood pressure was quite elevated with 1st machine read at 240/62 and 1st manual BP at 220/90 per RN report. Patient denies any HTN history and takes no medication for it. After sitting in room for repair of her wounds and rechecking prior to discharge, her BP was 180/70. She has been urged to follow up with her PCP regarding these readings. Vital signs were stable at discharge. Care instructions given. Discharged home with son. Differential Diagnosis Differential diagnosis: Likely other (Skin tear, skin avulsion, laceration, abrasion, contusion) Critical Care Time Critical Care Time Critical Care Time: No Discharge Plan Discharge Clinical Impression: Skin tear of right upper extremity Skin tear of right forearm without complication Qualifiers: Encounter type: initial encounter Qualified Code(s): S51.811A - Laceration without foreign body of right forearm, initial encounter Avulsion of skin of left elbow Qualifiers: Encounter type: initial encounter Qualified Code(s): S51.002A - Unspecified open wound of left elbow, initial encounter Patient Disposition: Home Condition: Stable Instructions: Skin Tear (ED), Skin Adhesive Strips (ED) Additional Instructions: Your wounds have been closed with Steri-Strips. It is okay for you to shower, but do not submerge your arm in standing water such as pools, lakes, or hot tubs, until you have a scab to the area or until it is healed. The wound on the left arm is open. Please keep covered until scabbed over. Monitor all wounds for signs of infection such as redness, swelling, increased pain, or drainage comments your doctor if you note any. Take Tylenol for pain if needed. Follow-up with your PCP with any additional concerns. Your blood pressure was quite elevated upon your arrival. Please make an appointment and follow-up with your PCP as soon as possible. Your blood pressure was elevated above 120/80 today at Urgent Care. This puts you above the threshold for follow up. Please schedule a followup visit with your personal physician as soon as possible, for further evaluation and treatment. Even blood pressure exceeding 120/80 may indicate pre-hypertension. Patient Language: Icelandic Prescriptions: No Action naproxen sodium [Aleve] 220 mg Tablet 220 mg PO DAILY PRN (Reason: ARTHRITIC PAIN) calcium carbonate [Caltrate 600] 600 mg calcium (1,500 mg) Tablet 600 mg PO DAILY cholecalciferol (vitamin D3) [Vitamin D3] 50 mcg (2,000 unit) Tablet 50 mcg PO DAILY omega 6-lwi-esi-fish oil [Fish Oil] 1,000 mg (120 mg-180 mg) Capsule 1 cap PO DAILY Follow-up/Referrals: Harms,Sanchez Caicedo M.D. [Primary Care Provider] - Time of Disposition: 16:39
[2025-04-07 16:37] VITALS: BP 180/70; PULSE 62; RESP 20
== END 2025-04-07 17:02 | disposition home or self-care (01) ==
PROVIDERS: Emergency Provider Nurse Practitioner; PCP Family Medicine
DX: S41.111A Laceration without foreign body of right upper arm, initial encounter (principal); S51.811A Laceration without foreign body of right forearm, initial encounter; S51.002A Unspecified open wound of left elbow, initial encounter; W19.XXXA Unspecified fall, initial encounter; M19.90 Unspecified osteoarthritis, unspecified site; Z96.651 Presence of right artificial knee joint
CPT/HCPCS: 99212; G0463